=== PATIENT | female | born 1985 | race Two or more races ===

== ENCOUNTER 2017-09-15 16:57 | Emergency (ER) | payer BC ==
[~2017-09-15] VITALS: Ht 170.2 cm; Wt 59.0 kg
[2017-09-15 17:30] VITALS: BP 112/75
[2017-09-15] MEDS ORDERED: Ketorolac 60mg Inj IM ONE (17:30)
[2017-09-15 17:36] LABS: APPEARANCE,URINE CLEAR; BILIRUBIN, URINE NEGATIVE (NEGATIVE); COLOR,URINE PALE YELLOW; GLUCOSE, URINE (UA) NEGATIVE (NEGATIVE); KETONES,URINE NEGATIVE (NEGATIVE); LEUKOCYTE ESTERASE ,URINE 1+ (NEGATIVE); NITRITE,URINE NEGATIVE (NEGATIVE); PH,URINE 7 (4.5-8.0); PROTEIN,URINE NEGATIVE (NEGATIVE); UROBILINOGEN,URINE NORMAL MG/DL (0.0-1.0)
--- NOTE | 2017-09-15 17:40 | Emergency Room Report ---
History of Present Illness General Chief Complaint: Abdominal Pain Source: Patient Present Illness HPI 31-year-old female presents to the emergency department complaining of 6/10 in severity right lower quadrant pain with radiation into the midline lower abdomen. Patient denies fevers, chills she reports feeling mildly distended and having urinary frequency. Denies vaginal d/c, genital lesions, or swollen tender lymph nodes. She denies she states she had a scant period On August 28, She describes very short periods after having Mirena IUD placed in February, and has had intermittent symptoms off and on x 2 months, symptoms usually lasting 1 week. Pt. reports she will be traveling soon out of the country for a prolonged period of time, and wanted to be evaluated since symptoms continue to return. She denies nausea, vomiting, diarrhea, constipation. Denies CP, Palpitations, LOC, AMS, dizziness, Changes in Vision, Sensation, paresthesias, or a sudden severe headache. She denies hematuria, or urgency. No vaginal discharge or external vaginal lesions. Denies history of STI. Allergies: Coded Allergies: CEPHALEXIN (Verified Allergy, Unknown, 09/15/17) Patient History Past Medical History: see triage record Past Surgical History: none Pertinent Family History: none Last Menstrual Period: 08/29/17 Now: No : 1 Para: 1 Reviewed Nursing Documentation: PMH: Agreed, PSxH: Agreed Nursing Documentation-PMH Past Medical History: No Stated History Hx Cardiac Problems: No Hx Hypertension: No Review of Systems All Other Systems: negative except mentioned in HPI Physical Exam Vital Signs Date Time Temp Pulse Resp B/P (MAP) Pulse Ox O2 Delivery O2 Flow Rate FiO2 09/15/17 17:00 98.1 83 16 112/75 98 Room Air Sp02 EP Interpretation: reviewed, normal General Appearance: well appearing, no apparent distress, alert, GCS 15, non- toxic Head: normocephalic, atraumatic ENT: hearing grossly normal, normal voice Neck: full range of motion Respiratory: lungs clear, normal breath sounds, speaking full sentences Cardiovascular #1: regular rate, rhythm Gastrointestinal: normal bowel sounds, soft, no guarding, no rebound, tenderness - Very mild ttp to the midline pubic area. otherwise unremarkable, other - Negative [place] signs, Negative MacBurney's sign, Negative [place] Sign, Negative Psoas, No Peritoneal signs. Rectal: deferred Genitourinary: normal inspection, no CVA tenderness Musculoskeletal: back normal, gait/station normal, normal range of motion, non- tender Neurologic: alert, oriented x3, responsive, motor strength/tone normal, sensory intact, normal gait, speech normal Skin: normal color, no rash, warm/dry, well hydrated Lymphatic: no adenopathy Medical Decision Making PA Attestation Dr. Blair is my supervising Physician whom patient management has been discussed with. Diagnostic Impression: Primary Impression: Abdominal pain Qualified Codes: R10.30 - Lower abdominal pain, unspecified ER Course 31-year-old female presents to the emergency department complaining of 6/10 in severity right lower quadrant pain with radiation into the midline lower abdomen. Patient denies fevers, chills she reports feeling mildly distended and having urinary frequency. Denies vaginal d/c, genital lesions, or swollen tender lymph nodes. She denies she states she had a scant period On August 28, She describes very short periods after having Mirena IUD placed in February, and has had intermittent symptoms off and on x 2 months, symptoms usually lasting 1 week. Pt. reports she will be traveling soon out of the country for a prolonged period of time, and wanted to be evaluated since symptoms continue to return. She denies nausea, vomiting, diarrhea, constipation. Denies CP, Palpitations, LOC, AMS, dizziness, Changes in Vision, Sensation, paresthesias, or a sudden severe headache. She denies hematuria, or urgency. No vaginal discharge or external vaginal lesions. Denies history of STI. Ddx considered but are not limited to UTi , Pyelo, STI, Stone, Cystitis Vital signs: are WNL, pt. is afebrile H&PE are most consistent with possible UTI, otherwise physical exam shows no acute distress nontoxic in appearance with relatively benign abdominal exam. ORDERS: - UA labs are attached- no evidence of infection. - Urine Hcg: Negative ED INTERVENTIONS: -Toradol IM -Pyridium PO --I do not identify an emergent condition at this time. With current presentation, pt. is stable for close outpatient follow up and conservative treatment. D/w pt. to return promptly to ED with worsening or new symptoms.- Pt. verbalizes' understanding and agreement with proposed treatment plan.proposed treatment plan. DISCHARGE: At this time pt. is stable for d/c to home. Will provide printed patient care instructions, and any necessary prescriptions. Care plan and follow up instructions have been discussed with the patient prior to discharge. Labs Test 09/15/17 17:19 Urine Color Pale yellow Urine Appearance Clear Urine pH 7 (4.5-8.0) Urine Specific [place] 1.005 (1.005-1.035) Urine Protein Negative (NEGATIVE) Urine Glucose (UA) Negative (NEGATIVE) Urine Ketones Negative (NEGATIVE) Urine Occult Blood Negative (NEGATIVE) Urine Nitrite Negative (NEGATIVE) Urine Bilirubin Negative (NEGATIVE) Urine Urobilinogen Normal MG/DL (0.0-1.0) Urine Leukocyte Esterase 1+ (NEGATIVE) Urine RBC 0-2 /HPF (0 - 2) Urine WBC 0-2 /HPF (0 - 2) Urine Squamous Epithelial Cells Few /LPF (NONE/OCC) Urine Bacteria Few /HPF (NONE) Urine HCG, Qualitative Negative Last Vital Signs Date Time Temp Pulse Resp B/P (MAP) Pulse Ox O2 Delivery O2 Flow Rate FiO2 09/15/17 17:00 98.1 83 16 112/75 98 Room Air Disposition: HOME, SELF-CARE Condition: Stable Scripts Ibuprofen* (MOTRIN*) 600 Mg Tablet 600 MG ORAL THREE TIMES A DAY, #30 TAB 0 Refills Prov: Liz Templeton 09/15/17 Referrals: NON PHYSICIAN (PCP) Patient Instructions: Abdominal Pain, Adult Additional Instructions: Take medications as directed. Follow up with an OBGYN or PMD within 3-5 days, even if your symptoms have resolved. Return sooner to ED if new symptoms occur, or current symptoms become worse. - Please note that this Emergency Department Report was dictated using [employer] technology software, occasionally this can lead to erroneous entry secondary to interpretation by the dictation equipment. Liz Templeton Sep 15, 2017 17:40
[2017-09-15] MEDS ORDERED: Phenazopyridine 200mg tab ORAL ONE (18:00)
[2017-09-15] MEDS ORDERED: IBUPROFEN600 MG ORAL (18:10)
[2017-09-15 18:23] VITALS: BP 118/82
== END 2017-09-15 18:24 | disposition home or self-care (01) ==
LOC: EMR 17:31
DX: R10.31 Right lower quadrant pain (principal); Z88.1 Allergy status to other antibiotic agents
CPT/HCPCS: 81003; 81025; 96372; 99283

== ENCOUNTER 2017-12-25 09:30 | Emergency (ER) | payer BC, MEDICAID ==
[~2017-12-25] VITALS: Ht 167.6 cm; Wt 59.0 kg
[~2017-12-25 09:30] MED LIST: IBUPROFEN600 MG ORAL
[2017-12-25] MEDS ORDERED: NKM (09:40)
[2017-12-25 09:53] LABS: APPEARANCE,URINE CLEAR; BILIRUBIN, URINE NEGATIVE (NEGATIVE); COLOR,URINE PALE YELLOW; GLUCOSE, URINE (UA) NEGATIVE (NEGATIVE); KETONES,URINE NEGATIVE (NEGATIVE); LEUKOCYTE ESTERASE ,URINE 2+ (NEGATIVE); NITRITE,URINE NEGATIVE (NEGATIVE); PH,URINE 8 (4.5-8.0); PROTEIN,URINE NEGATIVE (NEGATIVE); UROBILINOGEN,URINE NORMAL MG/DL (0.0-1.0)
--- NOTE | 2017-12-25 11:29 | Emergency Room Report ---
History of Present Illness General Chief Complaint: Female Urogenital Problems Source: Patient Present Illness HPI Patient presents with lower back pain and dysuria. The pain is only present when she urinates. She denies fevers, chills, NVD, discharge. She doesn't believe she is . She's been taking Azo and this has not helped. She has been drinking a lot of water since this began 3 days ago. She felt this way when she had a previous UTI. No history of stone. No abdominal pain. No major medial problems. Allergies: Coded Allergies: CEPHALEXIN (Verified Allergy, Unknown, 09/15/17) Patient History Past Medical History: see triage record Social History: Denies: smoking Social History Narrative working Last Menstrual Period: Unk Reviewed Nursing Documentation: PMH: Agreed; PSxH: Agreed Nursing Documentation-PMH Hx Cardiac Problems: No Hx Hypertension: No Review of Systems All Other Systems: negative except mentioned in HPI Physical Exam Vital Signs Date Time Temp Pulse Resp B/P (MAP) Pulse Ox O2 Delivery O2 Flow Rate FiO2 12/25/17 09:37 97.8 90 16 99/68 100 Room Air 97.9 Sp02 EP Interpretation: reviewed, normal General Appearance: well appearing, no apparent distress, GCS 15, non-toxic Head: normocephalic, atraumatic Eyes: bilateral eye normal inspection, bilateral eye PERRL ENT: hearing grossly normal, normal voice, moist mucus membranes Neck: full range of motion, supple Respiratory: no respiratory distress, speaking full sentences Cardiovascular #1: regular rate, rhythm Gastrointestinal: normal inspection Genitourinary: no CVA tenderness Musculoskeletal: back normal, gait/station normal, normal range of motion Neurologic: alert, normal gait, grossly normal Psychiatric: mood/affect normal Skin: no rash Medical Decision Making Diagnostic Impression: Primary Impression: UTI (urinary tract infection) Qualified Codes: N30.00 - Acute cystitis without hematuria Additional Impression: Dysuria ER Course Patient presents with dysuria and lower back pain. DDx: UTI, pyelo, herpes simplex, back strain, amongst others. Urinalysis indicated. Tylenol ordered and patient refused to take initially (had to be convinced). She was refusing as the pain only occurs when she urinates. Still denies d/c and blisters/rash in genitals. UA with minimal pyuria and hematuria. Discussed with patient. She is insistent this is UTI. Antibiotics begun. Advised patient of need to follow up with PMD. Patient stable for outpatient observation and treatment. Laboratory Tests Test 12/25/17 09:46 Urine Color Pale yellow Urine Appearance Clear Urine pH 8 (4.5-8.0) Urine Specific [place] 1.010 (1.005-1.035) Urine Protein Negative (NEGATIVE) Urine Glucose (UA) Negative (NEGATIVE) Urine Ketones Negative (NEGATIVE) Urine Occult Blood 5+ (NEGATIVE) H Urine Nitrite Negative (NEGATIVE) Urine Bilirubin Negative (NEGATIVE) Urine Urobilinogen Normal MG/DL (0.0-1.0) Urine Leukocyte Esterase 2+ (NEGATIVE) H Urine RBC 2-4 /HPF (0 - 2) H Urine WBC 2-4 /HPF (0 - 2) Urine Squamous Epithelial Cells Few /LPF (NONE/OCC) Urine Bacteria Occasional /HPF (NONE) Urine HCG, Qualitative Negative (NEGATIVE) Last Vital Signs Date Time Temp Pulse Resp B/P (MAP) Pulse Ox O2 Delivery O2 Flow Rate FiO2 12/25/17 11:51 97.8 16 99/68 100 Room Air 208.0 12/25/17 11:51 91 Status: improved Disposition: HOME, SELF-CARE Condition: Improved Scripts Phenazopyridine Hcl* (PYRIDIUM*) 100 Mg Tablet 100 MG ORAL THREE TIMES A DAY, #10 TAB Prov: Magnus Merrill M.D. 12/25/17 Nitrofurantoin Monohyd/M-Cryst* (MACROBID 100 MG*) 100 Mg Capsule 100 MG ORAL EVERY 12 HOURS, #14 CAP Prov: Magnus Merrill M.D. 12/25/17 Referrals: NOT APPLICABLE THIS PATIENT,RE (PCP) Magnus Merrill M.D. Dec 25, 2017 11:29
[2017-12-25] MEDS ORDERED: PHENAZOPYRIDIN100 MG ORAL (11:31)
[2017-12-25] MEDS ORDERED: NITROFURANTOIN100 M2 ORAL (11:31)
[2017-12-25 11:51] VITALS: BP_SYST 105; BP_SYST 99; BP_DIAS 68; BP_DIAS 73
== END 2017-12-25 11:53 | disposition home or self-care (01) ==
LOC: EMR 10:15
DX: N39.0 Urinary tract infection, site not specified (principal)
CPT/HCPCS: 81003; 81025; 99284

== ENCOUNTER 2019-08-20 08:41 | Emergency (ER) | payer OTHER, MEDICAID ==
[~2019-08-20] VITALS: Ht 170.2 cm; Wt 61.2 kg
[~2019-08-20 08:41] MED LIST changes: +NITROFURANTOIN100 M2 ORAL; +NKM; +PHENAZOPYRIDIN100 MG ORAL
[2019-08-20 09:14] LABS: APPEARANCE,URINE CLEAR; BILIRUBIN, URINE NEGATIVE (NEGATIVE); COLOR,URINE PALE YELLOW; GLUCOSE, URINE (UA) NEGATIVE (NEGATIVE); KETONES,URINE NEGATIVE (NEGATIVE); LEUKOCYTE ESTERASE ,URINE 3+ (NEGATIVE); NITRITE,URINE NEGATIVE (NEGATIVE); PH,URINE 7 (4.5-8.0); PROTEIN,URINE NEGATIVE (NEGATIVE); UROBILINOGEN,URINE NORMAL MG/DL (0.0-1.0)
[2019-08-20 09:28] VITALS: BP 98/54
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
[2019-08-20] MEDS ORDERED: Azithromycin 250mg tab ORAL ONE (09:30)
[2019-08-20] MEDS ORDERED: Lidocaine 1% MPF 10mg/ml 5ml INJ ONE (09:30)
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
[2019-08-20] MEDS ORDERED: DIFLUCAN200 MG ORAL (09:37)
[2019-08-20 10:25] VITALS: BP 98/54
--- NOTE | 2019-08-20 10:25 | NUR ---
ED Nurse Note: Pt cleared by health care Provider for discharge. DC instructions/prescription was given and explained to pt and verbalized understanding of teachings. All medical deviecs such as ID band removed. Pt is AAO x4, ambulatory and left with all personal belongings.
== END 2019-08-20 10:25 | disposition home or self-care (01) ==
LOC: EMR 09:25
DX: A64 Unspecified sexually transmitted disease (principal); Z88.1 Allergy status to other antibiotic agents
CPT/HCPCS: 81003; 81025; 87210; 87491; 87590; 96372; 99283; J0696